=== PATIENT | female | born 1975 | race Caucasian/White ===

== ENCOUNTER 2020-05-09 12:34 | Emergency (ER) | payer MEDICAID ==
[~2020-05-09] VITALS: Ht 172.7 cm; Wt 100.0 kg
== END 2020-05-09 13:37 | disposition home or self-care (01) ==
LOC: ER 12:35
DX: J06.9 Acute upper respiratory infection, unspecified (principal); R51.9 Headache, unspecified; R06.02 Shortness of breath; R05 Cough; R11.0 Nausea; Z20.828 Contact with and (suspected) exposure to other viral communicable diseases
CPT/HCPCS: 36415; 87635; 99283

== ENCOUNTER 2020-09-22 20:47 | Inpatient (IN) | payer MEDICAID ==
[~2020-09-22] VITALS: Ht 172.7 cm; Wt 113.6 kg
[2020-09-22 21:28] LABS: BASOPHILS # (AUTO) 0.1 X10'3 (0-0.2); BASOPHILS % (AUTO) 0.9 % (0-1); EOSINOPHILS % (AUTO) 0.6 % (0-6); HEMATOCRIT 39.9 % (35.0-45.0); HEMOGLOBIN 13.1 g/dl (12.0-16.0); LYMPHOCYTES # (AUTO) 1.6 X10'3 (1.1-4.8); LYMPHOCYTES % (AUTO) 25.1 % (21-51); MEAN CORPUSCULAR HEMOGLOBIN 28.3 PG (27.0-31.0); MEAN CORPUSCULAR HGB CONC 32.8 g/dL (33.0-36.5); MEAN CORPUSCULAR VOLUME 86.3 FL (78-98); MEAN PLATELET VOLUME 9.2 FL (7.4-10.4); MONOCYTES # (AUTO) 0.4 X10'3 (0-0.9); MONOCYTES % (AUTO) 6.6 % (2-12); NEUTROPHILS # (AUTO) 4.3 X10'3 (1.8-7.7); NEUTROPHILS % (AUTO) 66.8 % (42-75); PLATELET COUNT 222 X10'3 (140-440); RED BLOOD COUNT 4.62 X10'6 (4.20-5.60); RED CELL DISTRIBUTION WIDTH 14.6 % (11.5-14.5); WHITE BLOOD COUNT 6.4 X10'3 (4.5-11.0)
[2020-09-22 21:39] LABS: ALANINE AMINOTRANSFERASE 206 U/L (12-78); ALBUMIN 3.3 G/DL (3.4-5.0); ALBUMIN/GLOBULIN RATIO 0.9 (1.1-1.5); ALKALINE PHOSPHATASE 136 IU/L (46-116); ANION GAP 7 (8-16); ASPARTATE AMINO TRANSFERASE 249 U/L (10-37); BILIRUBIN,TOTAL 1.7 MG/DL (0.1-1.0); BLOOD UREA NITROGEN 7 MG/DL (7-18); CALCIUM 8.8 MG/DL (8.5-10.1); CHLORIDE 104 MMOL/L (99-107); GLUCOSE 111 MG/DL (70-104); LIPASE 66 U/L (73-393); POTASSIUM 3.8 MMOL/L (3.5-5.1); SODIUM 141 MMOL/L (135-145); TOTAL CARBON DIOXIDE 29.9 MMOL/L (24-32); eGFR > 90 ML/MIN
[2020-09-22 21:44] LABS: CLARITY,URINE CLEAR (Clear); GLUCOSE, URINE NEGATIVE (Neg); KETONES,URINE NEGATIVE (Neg); LEUKOCYTE ESTERASE ,URINE TRACE (Neg); NITRITES, URINE NEGATIVE (Neg); OCCULT BLOOD,URINE NEGATIVE (Neg); PH,URINE 7.5 (4.8-8.0); PROTEIN,URINE NEGATIVE (Neg); UROBILINOGEN,URINE >=8.0 E.U/dL (0.2-1.0)
[2020-09-22 21:45] LABS: URINE HCG NEGATIVE (NEG)
[2020-09-22 22:12] LABS: COLOR,URINE DARK YELLOW (Yellow); UA COLLECTION TYPE NON-SPECIFIED
[2020-09-22 22:13] LABS: BACTERIA,URINE 3+ /HPF (Neg); MUCUS STRANDS FEW /LPF (Neg); RBC,URINE NONE SEEN /HPF (0-2); SQUAMOUS EPITHELIAL CELL,UR MODERATE /LPF (FEW); WBC,URINE 0-4 /HPF (0-4)
[2020-09-22] MEDS ORDERED: ondansetron/PF 4mg/2ml inj IV ONE (23:45)
[2020-09-22] MEDS ORDERED: ketorolac tromethamine 15mg/ml inj. IV ONE (23:45)
[2020-09-23] VITALS (20 sets, daily range): BP systolic 124–165; BP diastolic 62–104
[2020-09-23] MEDS ORDERED: acetaminophen 650mg rectal suppository RC PRN (01:05)
[2020-09-23] MEDS ORDERED: bisacodyl 10mg suppository rectal RC PRN (01:05)
[2020-09-23] MEDS ORDERED: diphenhydrAMINE 25mg capsule PO PRN (01:05)
[2020-09-23] MEDS ORDERED: diphenhydrAMINE 50 mg/ml inj IV PRN (01:05)
[2020-09-23] MEDS ORDERED: ondansetron/PF 4mg/2ml inj IV PRN (01:05)
[2020-09-23] MEDS ORDERED: acetaminophen 325mg tablet PO PRN ×2 (01:05)
[2020-09-23] MEDS ORDERED: morphine 2 MG/ML inj. syringe IV PRN ×2 (01:05)
[2020-09-23] MEDS ORDERED: HYDROmorphone inj. 0.5 MG/0.5 ML DISP.SYRIN IV PRN (01:05)
[2020-09-23] MEDS ORDERED: mag hydrox/Alum hydrox/simeth 30ml oral suspension PO PRN (01:05)
[2020-09-23] MEDS ORDERED: magnesium hydroxide 30ml (MOM) UD suspension PO PRN (01:05)
[2020-09-23] MEDS: dextrose 5%-1/2 normal saline 1,000 ML IV SCH ×3 (01:33→15:45)
[2020-09-23 01:42] LABS: URINE AMPHETAMINE SCREEN POSITIVE (Neg); URINE BARBITUATE SCREEN NEGATIVE (Neg); URINE BENZODIAZEPINES SCREEN NEGATIVE (Neg); URINE CANNABINOID SCREEN POSITIVE (Neg); URINE COCAINE SCREEN NEGATIVE (Neg); URINE METHADONE SCREEN NEGATIVE (Neg); URINE OPIATE SCREEN NEGATIVE (Neg); URINE PHENCYCLIDINE SCREEN NEGATIVE (Neg)
[2020-09-23 01:48] LABS: MAGNESIUM 2.2 MG/DL (1.5-2.4); PHOSPHORUS 3.2 MG/DL (2.3-4.5)
[2020-09-23 01:57] LABS: PARTIAL THROMBOPLASTIN TIME 27 SECONDS (22-32)
[2020-09-23 02:01] LABS: HIV ANTIBODY 1&2 RAPID NON-REACTIVE (Neg)
--- NOTE | 2020-09-23 02:21 | NUR ---
PATIENT ADMITTED IN PCU 3012 REPORT GIVEN TO AVERY VARGAS PATIENT LEFT ER ON WHEELCHAIR.
--- NOTE | 2020-09-23 06:05 | NUR ---
Problems reprioritized. Patient report given, questions answered & plan of care reviewed with SAM Rae.
--- NOTE | 2020-09-23 06:38 | NUR ---
Patient in room PCU 3012. I have received report from [facility] and had the opportunity to ask questions and assume patient care.
--- NOTE | 2020-09-23 06:40 | NUR ---
Patient in room PCU 3012. I have received report from SAM Merino and had the opportunity to ask questions and assume patient care.
[2020-09-23 07:44] LABS: ALANINE AMINOTRANSFERASE 307 U/L (12-78); ALBUMIN 2.9 G/DL (3.4-5.0); ALBUMIN/GLOBULIN RATIO 0.9 (1.1-1.5); ALKALINE PHOSPHATASE 144 IU/L (46-116); ANION GAP 8 (8-16); ASPARTATE AMINO TRANSFERASE 290 U/L (10-37); BILIRUBIN,TOTAL 2.3 MG/DL (0.1-1.0); BLOOD UREA NITROGEN 5 MG/DL (7-18); BUN/CREATININE RATIO 7.4 (6.6-38.0); CALCIUM 8.1 MG/DL (8.5-10.1); CHLORIDE 105 MMOL/L (99-107); CREATININE 0.68 MG/DL (0.40-0.90); GLUCOSE 102 MG/DL (70-104); POTASSIUM 3.3 MMOL/L (3.5-5.1); SODIUM 141 MMOL/L (135-145); TOTAL CARBON DIOXIDE 27.9 MMOL/L (24-32); TOTAL PROTEIN 6.3 G/DL (6.4-8.2); eGFR > 90 ML/MIN
[2020-09-23] MEDS: piperacillin/tazo 4.5gm/100ml 100 ML IV SCH ×2 (07:47→15:39)
[2020-09-23] MEDS ORDERED: pantoprazole 40 MG vial IV SCH (08:00)
[2020-09-23] MEDS ORDERED: CefTRIAXone/D5W-Rocephin 1gm 50 ML IV SCH (08:00)
[2020-09-23] MEDS: docusate sod 100mg capsule PO SCH ×2 (08:00→20:00)
[2020-09-23] MEDS ORDERED: NO HOME MEDS (10:14)
[2020-09-23] MEDS ORDERED: fentaNYL/PF 50MCG/1 ML 2ML syringe ONE (12:10)
[2020-09-23] MEDS ORDERED: MIDAZolam 1 MG/ML 5ML VIAL ONE (12:11)
[2020-09-23] MEDS ORDERED: LIDOcaine Viscous 15ml cup ONE (12:12)
[2020-09-23] MEDS ORDERED: glucagon, human recombinant 1mg kit ONE (12:12)
[2020-09-23] MEDS ORDERED: iohexol 300 MG/1 ML 50ml polymer ONE (12:12)
--- NOTE | 2020-09-23 15:56 | NUR ---
notified. PAGER ID: [phone] MESSAGE: Re: Karen Waddell. [phone]. Patient is back from the ERCP if you want to see patient . Starting her on a CL diet per GI. patient reports relief. Thanks. Kyra. [phone].
--- NOTE | 2020-09-23 18:00 | NUR ---
Patient in room PCU 3012. I have received report from Kyra VARGAS and had the opportunity to ask questions and assume patient care.
--- NOTE | 2020-09-23 18:30 | NUR ---
Patient in room PCU 3012. I have received report from SAM Rae and had the opportunity to ask questions and assume patient care.
--- NOTE | 2020-09-23 18:36 | NUR ---
Problems reprioritized. Patient report given, questions answered & plan of care reviewed with Marcus RN.
--- NOTE | 2020-09-23 18:52 | NUR ---
notified PAGER ID: [phone] MESSAGE: RE; Bairon Karen [id number] Tele her K- 3.3 would you like to start her on Potassium replacement? Thank you SAM Wu ext [phone]
[2020-09-23] MEDS ORDERED: potassium Cl 20 mEq SR tablet PO PRN ×2 (19:10)
[2020-09-23] MEDS ORDERED: potassium Cl 40MEQ/1/2NS 520ml 520 ML IV PRN (19:10)
[2020-09-23] MEDS ORDERED: K and/or MAG REPLACEMENT MC SCH (20:00)
--- NOTE | 2020-09-23 20:05 | NUR ---
IVF and Abx Compatibility Pharmacy was called to verify D5 .45%NS and Zosyn compatibility. Pharmacy mentioned that though the two have not been tested it should be okay due to being tested with D5W and NS separately. Also mentioned secondary PIV would be best but if not possible, to be cautious keep an eye on the IV site for any inflammation, redness, and irritation. Patient is refusing a secondary IV and is agitated at this time, will continue to monitor patient and PIV site.
[2020-09-23] MEDS ORDERED: temazepam 15mg capsule PO PRN (21:00)
--- NOTE | 2020-09-23 21:17 | NUR ---
Patient wanting to go home educated on antibiotic treatment for uti and possibility of developing an antibiotic resistant UTI. Patient stated, "I can deal with it at home." Educated on leaving AMA and risks patient stated she didn't care.
--- NOTE | 2020-09-23 21:30 | NUR ---
Orientee documentation: I have reviewed and agree with all interventions, medication administration, assessments performed and documented by Jazmin VARGAS.
--- NOTE | 2020-09-23 21:30 | NUR ---
Iv removed cannula intact. MD Trejo called informed about patient wanting to leave AMA. Patient consulted advised to stay educated of risks of leaving possible and antibiotiv resistant UTI. Patient verbalized understanding signed AMAM papers and left vitals stable on AMA.
[2020-09-24 11:15] LABS: HBSAG SCREEN Negative (Negative); HEP A AB, IGM Negative (Negative); HEP B CORE AB, TOT Negative (Negative); HEPATITIS C ANTIBODY <0.1 s/co ratio (0.0-0.9)
== END 2020-09-23 21:47 | disposition left against medical advice (07) ==
LOC: ER 20:47 → ED HOLD 09-23 01:05 → PCU 3S 09-23 02:50
PROVIDERS: ADMIT Family Medicine; ATTEND Internal Medicine
PROC: 0F798ZZ Dilation of Common Bile Duct, Via Natural or Artificial Opening Endoscopic (ICD-10-PCS; principal; 2020-09-23)
PROC: BF101ZZ Fluoroscopy of Bile Ducts using Low Osmolar Contrast (ICD-10-PCS; 2020-09-23)
DX: K80.62 Calculus of gallbladder and bile duct with acute cholecystitis without obstruction (principal); E88.81 Metabolic syndrome and other insulin resistance; E66.9 Obesity, unspecified; F10.10 Alcohol abuse, uncomplicated; F12.10 Cannabis abuse, uncomplicated; F15.10 Other stimulant abuse, uncomplicated; E87.6 Hypokalemia; E80.6 Other disorders of bilirubin metabolism; F17.200 Nicotine dependence, unspecified, uncomplicated; I10 Essential (primary) hypertension; N39.0 Urinary tract infection, site not specified; Z68.38 Body mass index [BMI] 38.0-38.9, adult; Z98.891 History of uterine scar from previous surgery
CPT/HCPCS: 36415; 43262; 43264; 74176; 80053; 80305; 81001; 81025; 83036; 83605; 83690; 83735; 84100; 84443; 85025; 85610; 85730; 86703; 86704; 86705; 86706; 86709; 86803; 87040; 87077; 87081; 87088; 87186; 87340; 99152; 99153; 99285; A4620; C1769; C9113; G0378; J1610; J1885; J2250; J2405; J2543; J3010; J7040; Q9967

== ENCOUNTER 2021-03-12 21:21 | Inpatient (IN) | payer MEDICAID ==
[~2021-03-12] VITALS: Ht 172.7 cm; Wt 104.5 kg
[~2021-03-12 21:21] MED LIST: NO HOME MEDS
[2021-03-12 21:51] LABS: URINE HCG NEGATIVE (NEG)
[2021-03-12 21:59] LABS: CLARITY,URINE CLEAR (Clear); COLOR,URINE YELLOW (Yellow); UA COLLECTION TYPE CLN CATCH MIDSTREAM
[2021-03-12 22:05] LABS: GLUCOSE, URINE NEGATIVE (Neg); KETONES,URINE NEGATIVE (Neg); LEUKOCYTE ESTERASE ,URINE NEGATIVE (Neg); NITRITES, URINE NEGATIVE (Neg); OCCULT BLOOD,URINE NEGATIVE (Neg); PROTEIN,URINE NEGATIVE (Neg); UROBILINOGEN,URINE 0.2 E.U/dL (0.2-1.0)
[2021-03-12 22:09] LABS: ALANINE AMINOTRANSFERASE 28 U/L (12-78); ALBUMIN 3.8 G/DL (3.4-5.0); ALBUMIN/GLOBULIN RATIO 0.9 (1.1-1.5); ALKALINE PHOSPHATASE 83 IU/L (46-116); ANION GAP 8 (8-16); ASPARTATE AMINO TRANSFERASE 17 U/L (10-37); BILIRUBIN,TOTAL 0.3 MG/DL (0.1-1.0); BLOOD UREA NITROGEN 8 MG/DL (7-18); BUN/CREATININE RATIO 9.3 (6.6-38.0); CALCIUM 9.1 MG/DL (8.5-10.1); CHLORIDE 102 MMOL/L (99-107); CREATININE 0.86 MG/DL (0.40-0.90); GLUCOSE 120 MG/DL (70-104); LIPASE 79 U/L (73-393); POTASSIUM 3.7 MMOL/L (3.5-5.1); SODIUM 140 MMOL/L (135-145); TOTAL CARBON DIOXIDE 30.4 MMOL/L (24-32); eGFR 72 ML/MIN
[2021-03-12 22:12] LABS: BASOPHILS # (AUTO) 0.1 X10'3 (0-0.2); BASOPHILS % (AUTO) 0.5 % (0-1); EOSINOPHILS # (AUTO) 0.1 X10'3 (0-0.9); EOSINOPHILS % (AUTO) 1.3 % (0-6); HEMATOCRIT 42.7 % (35.0-45.0); HEMOGLOBIN 14.5 g/dl (12.0-16.0); LYMPHOCYTES # (AUTO) 1.6 X10'3 (1.1-4.8); LYMPHOCYTES % (AUTO) 13.5 % (21-51); MEAN CORPUSCULAR HEMOGLOBIN 29.2 PG (27.0-31.0); MEAN CORPUSCULAR HGB CONC 34.1 g/dL (33.0-36.5); MEAN CORPUSCULAR VOLUME 85.6 FL (78-98); MEAN PLATELET VOLUME 9.9 FL (7.4-10.4); MONOCYTES # (AUTO) 0.6 X10'3 (0-0.9); MONOCYTES % (AUTO) 4.8 % (2-12); NEUTROPHILS # (AUTO) 9.2 X10'3 (1.8-7.7); NEUTROPHILS % (AUTO) 79.9 % (42-75); PLATELET COUNT 263 X10'3 (140-440); RED BLOOD COUNT 4.99 X10'6 (4.20-5.60); RED CELL DISTRIBUTION WIDTH 14.2 % (11.5-14.5); WHITE BLOOD COUNT 11.5 X10'3 (4.5-11.0)
[2021-03-12] MEDS ORDERED: ondansetron/PF 4mg/2ml inj IV ONE (23:25)
[2021-03-12] MEDS ORDERED: morphine 4 MG/ML inj SYRINge IV ONE (23:25)
[2021-03-12] MEDS ORDERED: iohexol 300mg/ml 100ml inj. ONE (23:25)
[2021-03-13] MEDS ORDERED: piperacillin/tazo 3.375gm/50ml 50 ML IV ONE (00:05)
[2021-03-13] MEDS ORDERED: normal saline 1000ml 1,000 ML IV ONE (00:05)
[2021-03-13] MEDS ORDERED: potassium Cl 20 mEq SR tablet PO PRN ×2 (00:55)
[2021-03-13] MEDS ORDERED: magnesium Cl slow-release 64mg tablet PO PRN (00:55)
[2021-03-13] MEDS: normal saline 1000ml 1,000 ML IV SCH ×3 (00:55→20:11)
[2021-03-13] MEDS ORDERED: ondansetron/PF 4mg/2ml inj IV PRN ×2 (00:55→13:20)
[2021-03-13] MEDS ORDERED: morphine 2 MG/ML inj. syringe IV PRN ×2 (00:55→13:20)
[2021-03-13] MEDS ORDERED: magnesium 2GM in 50ml NS 50 ML IV PRN (00:55)
[2021-03-13] MEDS ORDERED: magnesium 4gm in 100ml NS 100 ML IV PRN (00:55)
[2021-03-13] MEDS ORDERED: acetaminophen 325mg tablet PO PRN (00:55)
[2021-03-13] MEDS ORDERED: potassium Cl 40MEQ/1/2NS 520ml 520 ML IV PRN ×2 (00:55)
--- NOTE | 2021-03-13 02:25 | NUR ---
promotional table spacer PAGER ID: [phone] MESSAGE: Karen Bairon in ER #4 SBP consistently >190. Pt reports no hx of HTN. Orders?
[2021-03-13] MEDS ORDERED: hydrALAZINE 20mg/ml inj. IV PRN ×2 (02:40→13:20)
[2021-03-13] MEDS ORDERED: morphine 2 MG/ML inj. syringe IV ONE (04:00)
--- NOTE | 2021-03-13 06:30 | NUR ---
Patient in room KIANA 345. I have received report from Ania and had the opportunity to ask questions and assume patient care.
--- NOTE | 2021-03-13 07:05 | NUR ---
Problems reprioritized. Patient report given, questions answered & plan of care reviewed with Екатерина nelson.
[2021-03-13 08:00] VITALS: BP 126/76
[2021-03-13] MEDS: K and/or MAG REPLACEMENT MC SCH ×2 (08:00→20:00)
--- NOTE | 2021-03-13 08:00 | NUR ---
upon looking over pt belongings I found drug paraphernalia and pt stated they did meth 2 days ago. I will paged dr bañuelos to see about getting a tox screening done. I called security to come get the drug paraphernalia.
--- NOTE | 2021-03-13 08:00 | NUR ---
pt allowed permission to looked over belongings as part of the admission to the hospital. As we went over belongings pt pulled out paraphernalia, i made it clear to the pt that we would need to bag it up, label it, and give it to security, as its not allowed within the hospital. during this time pt also stated she had done meth 2 days ago, but she did not have any drugs with her just the paraphernalia within her purse.
[2021-03-13 08:52] LABS: URINE AMPHETAMINE SCREEN POSITIVE (Neg); URINE BARBITUATE SCREEN NEGATIVE (Neg); URINE BENZODIAZEPINES SCREEN NEGATIVE (Neg); URINE CANNABINOID SCREEN NEGATIVE (Neg); URINE COCAINE SCREEN NEGATIVE (Neg); URINE METHADONE SCREEN NEGATIVE (Neg); URINE OPIATE SCREEN POSITIVE (Neg); URINE PHENCYCLIDINE SCREEN NEGATIVE (Neg)
[2021-03-13 09:24] VITALS: BP 135/82
[2021-03-13] MEDS: piperacillin/tazo 4.5gm/100ml 100 ML IV SCH ×2 (09:38→16:36)
--- NOTE | 2021-03-13 09:38 | NUR ---
as clinical instructor i reviewed student documentation
[2021-03-13] MEDS: HYDROmorphone inj. 0.5 MG/0.5 ML DISP.SYRIN IV PRN ×2 (09:46→16:37)
[2021-03-13 11:00] VITALS: BP 148/84
[2021-03-13] MEDS ORDERED: fentaNYL/PF 50MCG/1 ML 2ML syringe IV PRN ×2 (13:20)
[2021-03-13] MEDS ORDERED: ringers solution, lacted 1,000 ML IV ONE (13:20)
[2021-03-13] MEDS ORDERED: morphine 4 MG/ML inj SYRINge IV PRN (13:20)
[2021-03-13] MEDS ORDERED: labetalol 20mg/4ml (5mg/ml) syringe IV PRN (13:20)
[2021-03-13] MEDS ORDERED: ringers solution, lacted 1,000 ML IV SCH (13:20)
--- NOTE | 2021-03-13 17:59 | NUR ---
Problems reprioritized. Patient report given, questions answered & plan of care reviewed with Ania VARGAS.
--- NOTE | 2021-03-13 18:38 | NUR ---
Problems reprioritized. Patient report given, questions answered & plan of care reviewed with Kinga nelson.
--- NOTE | 2021-03-13 18:48 | NUR ---
Patient in room KIANA 345B. I have received report from SAM Chapa and had the opportunity to ask questions and assume patient care.
[2021-03-13 21:19] VITALS: BP 106/60
[2021-03-14] VITALS (17 sets, daily range): BP systolic 120–156; BP diastolic 57–92
[2021-03-14] MEDS: piperacillin/tazo 4.5gm/100ml 100 ML IV SCH ×3 (00:21→17:22)
[2021-03-14] MEDS: HYDROmorphone inj. 0.5 MG/0.5 ML DISP.SYRIN IV PRN ×2 (00:22→09:04)
[2021-03-14] MEDS ORDERED: famotidine 20mg tablet PO ONE (06:00)
[2021-03-14 06:02] LABS: BASOPHILS # (AUTO) 0.1 X10'3 (0-0.2); BASOPHILS % (AUTO) 0.8 % (0-1); EOSINOPHILS # (AUTO) 0.4 X10'3 (0-0.9); EOSINOPHILS % (AUTO) 5.3 % (0-6); HEMATOCRIT 38.4 % (35.0-45.0); LYMPHOCYTES # (AUTO) 2.2 X10'3 (1.1-4.8); LYMPHOCYTES % (AUTO) 27.8 % (21-51); MEAN CORPUSCULAR HEMOGLOBIN 28.9 PG (27.0-31.0); MEAN CORPUSCULAR HGB CONC 33.7 g/dL (33.0-36.5); MEAN CORPUSCULAR VOLUME 85.7 FL (78-98); MEAN PLATELET VOLUME 10.2 FL (7.4-10.4); MONOCYTES # (AUTO) 0.6 X10'3 (0-0.9); MONOCYTES % (AUTO) 7.9 % (2-12); NEUTROPHILS # (AUTO) 4.6 X10'3 (1.8-7.7); NEUTROPHILS % (AUTO) 58.2 % (42-75); PLATELET COUNT 205 X10'3 (140-440); RED BLOOD COUNT 4.49 X10'6 (4.20-5.60); RED CELL DISTRIBUTION WIDTH 14.5 % (11.5-14.5); WHITE BLOOD COUNT 7.8 X10'3 (4.5-11.0)
[2021-03-14 06:08] LABS: ALBUMIN 2.7 G/DL (3.4-5.0); ANION GAP 9 (8-16); BLOOD UREA NITROGEN 8 MG/DL (7-18); BUN/CREATININE RATIO 10.4 (6.6-38.0); CHLORIDE 106 MMOL/L (99-107); CREATININE 0.77 MG/DL (0.40-0.90); GLUCOSE 83 MG/DL (70-104); MAGNESIUM 2.1 MG/DL (1.5-2.4); POTASSIUM 3.6 MMOL/L (3.5-5.1); SODIUM 140 MMOL/L (135-145); TOTAL CARBON DIOXIDE 25.1 MMOL/L (24-32); eGFR 82 ML/MIN
--- NOTE | 2021-03-14 06:39 | NUR ---
Student documentation: I have reviewed and agree with all interventions, assessments performed and documented by Sohail Student Nurse.
--- NOTE | 2021-03-14 06:39 | NUR ---
Problems reprioritized. Patient report given, questions answered & plan of care reviewed with SAM Lubin.
[2021-03-14] MEDS: K and/or MAG REPLACEMENT MC SCH ×2 (08:00→20:00)
[2021-03-14] MEDS: normal saline 1000ml 1,000 ML IV SCH ×3 (09:04→22:21)
[2021-03-14] MEDS ORDERED: INDOCYANINE GREEN 25 MG/10 ML VIAL IV ONE (13:00)
--- NOTE | 2021-03-14 13:43 | NUR ---
Met with patient in regards to inpatient rehab. Patient is ready for treatment. I gave patient Beacons phone number with her Partnership ID to get the process started. I will follow up with patient while she is here to help her with whatever I can.
[2021-03-14] MEDS ORDERED: glucagon, human recombinant 1mg kit SUBCUT PRN (13:45)
[2021-03-14] MEDS ORDERED: dextrose 50%-water 50ml dispensing syringe IV PRN ×2 (13:45)
[2021-03-14] MEDS ORDERED: dextrose ORAL solution 15 GM/59 ML bottle PO PRN ×2 (13:45)
[2021-03-14] MEDS ORDERED: dextrose 50%-water 50ml dispensing syringe IV ONE (13:46)
[2021-03-14] MEDS ORDERED: LIDOcaine 1% 30ml preserv. free vial ONE (13:50)
[2021-03-14] MEDS ORDERED: BUPIVAcaine/PF 2.5 mg/ml (0.25%) 30ml vial ONE (13:50)
--- NOTE | 2021-03-14 13:58 | NUR ---
Patient report called to Ramon in Recovery. He is aware patients Blood glucose was 64 and I gave the patient 25ml's of glucose they will have to recheck patients Blood glucose. Patient has 2 IV's and the 22G was throbbing post glucose administration even with 10cc NS flush. Ramon aware patient has a 20G to her Right wrist that is working well.
[2021-03-14] MEDS ORDERED: ondansetron/PF 4mg/2ml inj IV PRN (14:20)
[2021-03-14] MEDS ORDERED: proCHLORperazine 10 MG/2 ml inj IV PRN (14:20)
[2021-03-14] MEDS ORDERED: labetalol 20mg/4ml (5mg/ml) syringe IV PRN (14:20)
[2021-03-14] MEDS ORDERED: hydrALAZINE 20mg/ml inj. IV PRN (14:20)
[2021-03-14] MEDS ORDERED: morphine 2 MG/ML inj. syringe IV PRN (14:20)
[2021-03-14] MEDS ORDERED: ringers solution, lacted 1,000 ML IV SCH (14:20)
[2021-03-14] MEDS ORDERED: morphine 4 MG/ML inj SYRINge IV PRN (14:20)
[2021-03-14] MEDS ORDERED: acetaminophen 1,000mg/100ml IV 100 ML IV PRN (14:20)
[2021-03-14] MEDS ORDERED: meperidine/PF 25mg/ml syringe IV PRN ×3 (14:20)
[2021-03-14] MEDS ORDERED: midazolam 1 mg/ML 2ml injection ONE (14:24)
[2021-03-14] MEDS ORDERED: LIDOcaine 2% (20mg/ml) 5ml vial ONE (14:38)
[2021-03-14] MEDS ORDERED: ceFAZolin 1000mg inj ONE ×2 (14:38)
[2021-03-14] MEDS ORDERED: rocuronium 10mg/ml inj IV ONE (14:38)
[2021-03-14] MEDS ORDERED: fentaNYL /PF 50mcg/ml 5ml ampule ONE (14:38)
[2021-03-14] MEDS ORDERED: propofol inj 20 ML IV ONE (14:38)
[2021-03-14] MEDS ORDERED: ondansetron/PF 4mg/2ml inj ONE (14:40)
[2021-03-14] MEDS ORDERED: dexamethasone sod phosphate 4mg/ml inj. ONE (14:40)
[2021-03-14] MEDS ORDERED: glycopyrrolate 0.2mg/ml inj ONE (15:50)
[2021-03-14] MEDS ORDERED: neostigmine methylsulfate 1 MG/ML 10ml vial ONE (15:50)
--- NOTE | 2021-03-14 16:10 | NUR ---
ADMITTED TO PACU FROM OR ACCOMPANIED BY ANESTHESIA. INTIAL PHYSICAL ASSESSMENT DONE AND RECORDED. REPORT RECEIVED FROM ANESTHESIA.
[2021-03-14] MEDS ORDERED: HYDROcodone/acetaminophen 5mg/325mg tablet PO PRN (16:35)
--- NOTE | 2021-03-14 17:00 | NUR ---
PACU DISCHARGE CRITERIA MET, REPORT GIVEN TO FLOOR. DENIES PAIN OR DISCOMFORT. PT IS STABLE AND ADEQUATELY RECOVERED FROM ANESTHESIA. PT HAS STABLE AIRWAY PATENCY, RESPIRATORY FUNCTION TO INCLUDE RESPIRATORY RATE AND O2 SAT. HEART RATE, BLOOD PRESSURE STABLE AND HYDRATION ADEQUATE. MENTAL STATUS IS APPROPRIATE. PAIN AND NAUSEA CONTROLLED. REFER TO PACU SPREADSHEET FOR VITAL SIGNS.
--- NOTE | 2021-03-14 17:05 | NUR ---
PT WISHES TO GO HOME TONIGHT, DR. FALCON ADVISED. NO DISCHARGE TONIGHT DUE TO PT'S SURGICAL STATUS, CHRISTI VARGAS CALLED AND ADVISED.
[2021-03-14] MEDS: HYDROcodone/acetaminophen 10/325mg tab PO PRN ×2 (17:21→18:54)
--- NOTE | 2021-03-14 18:10 | NUR ---
Patient in room KIANA 345B. I have received report from SAM Lubin and had the opportunity to ask questions and assume patient care.
--- NOTE | 2021-03-14 18:21 | NUR ---
Problems reprioritized. Patient report given, questions answered & plan of care reviewed with Karen VARGAS.
[2021-03-14] MEDS: lactobacillus rhamnosus 10,000 MMU CELLS/CAPSULE PO SCH (20:04)
[2021-03-15] VITALS: BP 129/72
[2021-03-15] MEDS: piperacillin/tazo 4.5gm/100ml 100 ML IV SCH ×2 (00:54→07:32)
[2021-03-15 05:44] LABS: BASOPHILS % (AUTO) 0.2 % (0-1); EOSINOPHILS % (AUTO) 0 % (0-6); HEMATOCRIT 37.4 % (35.0-45.0); HEMOGLOBIN 12.6 g/dl (12.0-16.0); LYMPHOCYTES # (AUTO) 0.7 X10'3 (1.1-4.8); LYMPHOCYTES % (AUTO) 6.4 % (21-51); MEAN CORPUSCULAR HEMOGLOBIN 28.9 PG (27.0-31.0); MEAN CORPUSCULAR HGB CONC 33.7 g/dL (33.0-36.5); MEAN CORPUSCULAR VOLUME 85.8 FL (78-98); MEAN PLATELET VOLUME 9.6 FL (7.4-10.4); MONOCYTES # (AUTO) 0.7 X10'3 (0-0.9); MONOCYTES % (AUTO) 6.1 % (2-12); NEUTROPHILS # (AUTO) 10.2 X10'3 (1.8-7.7); NEUTROPHILS % (AUTO) 87.3 % (42-75); PLATELET COUNT 220 X10'3 (140-440); RED BLOOD COUNT 4.36 X10'6 (4.20-5.60); RED CELL DISTRIBUTION WIDTH 14.6 % (11.5-14.5); WHITE BLOOD COUNT 11.7 X10'3 (4.5-11.0)
--- NOTE | 2021-03-15 06:06 | NUR ---
Problems reprioritized. Patient report given, questions answered & plan of care reviewed with SAM Madrid.
[2021-03-15 06:14] LABS: ALBUMIN 2.6 G/DL (3.4-5.0); ANION GAP 8 (8-16); BLOOD UREA NITROGEN 6 MG/DL (7-18); CALCIUM 8.4 MG/DL (8.5-10.1); CHLORIDE 106 MMOL/L (99-107); CREATININE 0.86 MG/DL (0.40-0.90); GLUCOSE 118 MG/DL (70-104); POTASSIUM 4.1 MMOL/L (3.5-5.1); SODIUM 141 MMOL/L (135-145); TOTAL CARBON DIOXIDE 26.7 MMOL/L (24-32); eGFR 72 ML/MIN
[2021-03-15 07:00] VITALS: BP 136/80
[2021-03-15] MEDS: lactobacillus rhamnosus 10,000 MMU CELLS/CAPSULE PO SCH (07:32)
[2021-03-15] MEDS: K and/or MAG REPLACEMENT MC SCH (08:00)
--- NOTE | 2021-03-15 09:34 | NUR ---
IV was removed at 0930 on 03/15/21. Addendum: 03/15/21 at 0936 by Naty Kaplan - Student HAVEN Amended: Links added.
[2021-03-15] MEDS ORDERED: AMOX-422 PO (09:45)
[2021-03-15] MEDS ORDERED: HYDR-3964 PO (09:45)
[2021-03-15 10:07] LABS: ALANINE AMINOTRANSFERASE 36 U/L (12-78); ALBUMIN/GLOBULIN RATIO 0.7 (1.1-1.5); ALKALINE PHOSPHATASE 63 IU/L (46-116); ASPARTATE AMINO TRANSFERASE 33 U/L (10-37); BILIRUBIN,TOTAL 0.3 MG/DL (0.1-1.0); TOTAL PROTEIN 6.6 G/DL (6.4-8.2)
--- NOTE | 2021-03-15 10:26 | NUR ---
Pt discharged home. belongings sent with pt. iv's removed tips intact. Educated pt on follow up with dr. oscar. pt discharged in stable condition to home in private vehicle
== END 2021-03-15 10:05 | disposition home or self-care (01) | DRG 263 ==
LOC: ER 21:22 → UNDOADMIN 03-13 00:58 → ED HOLD 03-13 00:58 → SUR 3N 03-13 07:28 → ED HOLD 03-13 07:28
PROVIDERS: ADMIT Internal Medicine; ATTEND Family Medicine
PROC: BW211ZZ Computerized Tomography (CT Scan) of Abdomen and Pelvis using Low Osmolar Contrast (ICD-10-PCS; 2021-03-12)
PROC: 8E0W4CZ Robotic Assisted Procedure of Trunk Region, Percutaneous Endoscopic Approach (ICD-10-PCS; 2021-03-14)
PROC: BF532Z0 Other Imaging of Gallbladder and Bile Ducts using Fluorescing Agent, Intraoperative (ICD-10-PCS; 2021-03-14)
PROC: 0FT44ZZ Resection of Gallbladder, Percutaneous Endoscopic Approach (ICD-10-PCS; principal; 2021-03-14 14:18)
DX: K80.01 Calculus of gallbladder with acute cholecystitis with obstruction (principal); E66.9 Obesity, unspecified; F15.90 Other stimulant use, unspecified, uncomplicated; Z20.822 Contact with and (suspected) exposure to COVID-19; F17.210 Nicotine dependence, cigarettes, uncomplicated; Z98.891 History of uterine scar from previous surgery; Z68.35 Body mass index [BMI] 35.0-35.9, adult; Z71.51 Drug abuse counseling and surveillance of drug abuser; Z71.6 Tobacco abuse counseling
CPT/HCPCS: 36415; 74177; 80048; 80053; 80305; 81003; 81025; 82948; 83690; 83735; 85025; 86885; 86900; 86901; 87081; 87635; 99285; A4215; A4618; A7000; G0378; J0360; J0690; J1100; J1170; J2001; J2250; J2270; J2405; J2543; J2704; J2710; J3010; J3490; J7030; J7120; Q9967

== ENCOUNTER 2024-08-03 07:19 | Emergency (ER) | payer MEDICAID ==
[~2024-08-03] VITALS: Ht 172.7 cm; Wt 126.7 kg
[~2024-08-03 07:19] MED LIST changes: +HYDR-3964 PO
[2024-08-03 07:25] VITALS: BP 149/93; PULSE 94; RESP 18; TEMP 97.8; O2SAT 96
== END 2024-08-03 08:35 | disposition home or self-care (01) ==
LOC: ER 07:20
DX: S83.8X1A Sprain of other specified parts of right knee, initial encounter (principal); Z98.890 Other specified postprocedural states; X58.XXXA Exposure to other specified factors, initial encounter; Y93.89 Activity, other specified; Y92.89 Other specified places as the place of occurrence of the external cause; Y99.8 Other external cause status
CPT/HCPCS: 29530; 73564; 99283

== ENCOUNTER 2024-12-10 20:03 | Emergency (ER) | payer MEDICAID ==
[~2024-12-10] VITALS: Ht 175.3 cm; Wt 122.5 kg
[2024-12-10 20:08] VITALS: TEMP 98
--- NOTE | 2024-12-10 20:22 | ELECTROCARDIOGRAPH REPORT ---
[facility] Test Date: 2024-12-10 Test Time: 20:20:15 Pat Name: SNOW DEY Department: [facility]- Patient ID: [facility]-[id number] Room: Gender: F Supervisor Post Wave: HERNESTO VARGAS : 1975 Requested By: VALENCIA KATHLEEN Order Number: [id number] Reading MD: Measurements Intervals [place] Rate: 70 P: 49 IL: 169 QRS: -8 QRSD: 131 T: 50 QT: 394 QTc: 426 Interpretive Statements Sinus rhythm Probable left ventricular hypertrophy Baseline wander in lead(s) V4 Please click the below link to view image of tracing.
[2024-12-10 20:39] LABS: MEAN PLATELET VOLUME 10.0 FL (7.4-10.4); RED CELL DISTRIBUTION WIDTH 12.9 % (11.5-14.5)
--- NOTE | 2024-12-10 20:48 | RADIOLOGY REPORT ---
CHEST RADIOGRAPH Indication: CP Technique: 1 view Comparison: None FINDINGS: Lines and Tubes: None Lungs: No focal consolidation. Pleura: No effusion or pneumothorax. Right costophrenic angle opacity appears to represent rib summat ion. Cardiomediastinal contours: Unremarkable. Other: No acute osseous abnormality. IMPRESSION: 1. No acute cardiopulmonary abnormality.
[2024-12-10 20:53] LABS: CREATININE 0.92 MG/DL (0.40-0.90); PRO BRAIN NATRIURETIC PEPTIDE 90 PG/ML (0-125); TOTAL CARBON DIOXIDE 25.6 MMOL/L (24-32); eCRCL 80 ML/MIN; eGFR 66 ML/MIN
[2024-12-11 03:20] LABS: URINE HCG NEGATIVE (NEG)
--- NOTE | 2024-12-11 03:23 | Physician Documentation ---
History of Present Illness ~ Chief Complaint: Dizziness Stated Complaint: DIZZINESS Time Seen by MD: 03:14 Primary Medical Doctor: SALLY/ Sabrina TONG 48-year-old female presenting with what she describes as unusual sensations in her eyes. She states that she was sitting at home today when she started seeing some floaters and felt like her vision was come in and going. She describes it as strange form of dizziness although the room was not spinning and she did not necessarily feel lightheaded. At that time she felt like her chest was slightly tight but this quickly went away. Her symptoms resolve but she got worried and wants to be checked out. She denies any urinary symptoms, shortness of breath or any other associated symptoms. Medication Reconciliation Allergies: Coded Allergies: No Known Allergies (Unverified , 12/10/24) Scheduled Nitrofurantoin Macrocrystal (Nitrofurantoin), 1 CAP PO Q12H Scheduled PRN Hydrocodone Bit/Acetaminophen (Hydrocodon-Acetaminophen 5-325), 1 TAB PO Q4H PRN for MODERATE PAIN 4-6 Miscellaneous Medications Home Med List (No Home Medications), (Reported) Past Medical History Past Medical History: No Pertinent History Past Surgical History: Patient History: Patient reports no known family medical history. Drug Use: none Lives In: Home Review of Systems All Other Systems at this time: Reviewed and Negative Physical Exam Vital Signs: Temperature: 98.0, Heart Rate: 74, Respiratory Rate: 16, BP: 133/83, Pulse Oximetry: 94, Weight: 122.500 Oxygen Flow Rate: 0 Physical Exam I have reviewed the triage vitals. CONST: Well developed and well nourished. In no acute distress HENT: Head Atraumatic EYES: Pupils are equal, round and reactive to light. Normal conjunctiva NECK: Normal range of motion. Supple. CARDIO: Normal rate and regular rhythm. No murmurs, rubs, or gallops. S1, S2. PULM/CHEST: No respiratory distress. Lungs clear to auscultation. No wheeze ABD: Soft and nontender. Nondistended. Bowel sounds normal. No guarding. : Exam deferred MSK: No edema. No deformity. NEURO: Alert and oriented to person, place and time. Moving all extremities SKIN: Warm and dry. PSYCH: Normal mood and affect. Good eye contact. Progress Results/Orders Results/Orders Orders - VALENCIA KATHLEEN MD Chest,Single View (12/10/24 20:36) Monitor (12/10/24 20:13) Saline Lock (12/10/24 20:13) Oxygen (12/10/24 20:13) Straight Cath For Urine Sample (12/11/24 03:05) Completed Orders - VALENCIA KATHLEEN MD Chest,Single View (12/10/24 20:36) Cbc/Diff (12/10/24 20:13) BMP (12/10/24 20:13) PBNP (12/10/24 20:13) Electrocardiogram (12/10/24 20:13) Hs Troponin I W Calculations (12/10/24 20:13) Hs Troponin I W Calculations (12/10/24 22:13) Hs Troponin I W Calculations (12/10/24 23:13) Hcg, Ur Ql (12/11/24 03:05) Ua W/Microscopic, Cult If Ind (12/11/24 02:00) Cult Urine + [place] [address] (12/11/24 04:27) Laboratory Tests Test 12/10/24 20:21 12/10/24 22:20 12/10/24 23:24 12/11/24 02:00 White Blood Count 6.1 Red Blood Count 4.45 Hemoglobin 13.0 Hematocrit 38.3 Mean Corpuscular Volume 85.9 Mean Corpuscular Hemoglobin 29.2 Mean Corpuscular Hemoglobin Concent 34.0 Red Cell Distribution Width 12.9 Platelet Count 215 Mean Platelet Volume 10.0 Neutrophils (%) (Auto) 42.6 Lymphocytes (%) (Auto) 43.0 Monocytes (%) (Auto) 8.5 Eosinophils (%) (Auto) 3.9 Basophils (%) (Auto) 2.0 H Neutrophils # (Auto) 2.6 Lymphocytes # (Auto) 2.6 Monocytes # (Auto) 0.5 Eosinophils # (Auto) 0.2 Basophils # (Auto) 0.1 CBC Comment Sodium Level 140 Potassium Level 3.6 Chloride Level 106 Carbon Dioxide Level 25.6 Anion Gap 8 Blood Urea Nitrogen 11 Creatinine 0.92 H Estimated GFR/1.73 m2 66 BUN/Creatinine Ratio 12.0 Glucose Level 85 Calcium Level 8.7 Troponin I High Sensitivity 7 7 5 Pro-B-Type Natriuretic Peptide 90 Albumin 3.6 Chemistry Comments Troponin I High Sens Percent Delta 0 28 Troponin I Hi Sens Absolute Change 0 -2 Urine Specimen Description Voided Urine Color Yellow Urine Clarity Slightly cloudy Urine pH 5.5 Urine Specific [place] >=1.030 Urine Protein Trace Urine Glucose (UA) Negative Urine Ketones Trace H Urine Occult Blood Small Urine Nitrite Negative Urine Bilirubin Negative Urine Urobilinogen 0.2 Urine Leukocyte Esterase Trace H Urine RBC 0-2 Urine WBC 5-10 H Urine Squamous Epithelial Cells Moderate Urine Calcium Oxalate Crystals 2+ Urine Bacteria 2+ Urine Mucus Moderate Urine Culture Indicated Indicated Volume Urine Centrifuged 10 ml Urine HCG, Qualitative Negative Urine Comment Microbiology Date/Time Source Procedure Growth Status 12/11/24 04:27 Urine Voided Urine Culture - Final MIXED KYRA ISOLATED.... Complete Medical Decision Making Additional Information 48-year-old female presenting with a urinary tract infection. UA is suggestive of this. Patient will be discharged with nitrofurantoin for seven days. Advised to take them as prescribed and follow up with PCP. Return to ED with any worsening symptoms. Departure Disposition: 01 HOME / SELF CARE / HOMELESS Impression: Primary Impression: Urinary tract infection Condition: Stable Discharge Instructions: Urinary Tract Infection, Adult Additional Instructions: Please take your medication as prescribed. Please ensure that you are drinking plenty of fluids. Monitor for improvement and resolution. Return to the ED with any acutely worsening symptoms. Referrals: NO PRIMARY CARE PROVIDER (PCP) Prescriptions Nitrofurantoin Macrocrystal (Nitrofurantoin) 100 Mg Capsule 1 CAP PO Q12H for 7 Days, #14 CAP 0 Refills Prov: VALENCIA KATHLEEN MD 12/11/24 Signature Scribe Signature: 1 Attestation: 1 VALENCIA KATHLEEN MD Dec 11, 2024 03:23
[2024-12-11 03:26] LABS: LEUKOCYTE ESTERASE ,URINE TRACE (Neg); NITRITES, URINE NEGATIVE (Neg); OCCULT BLOOD,URINE SMALL (Neg)
[2024-12-11 04:04] LABS: UA COLLECTION TYPE VOIDED
[2024-12-11 04:22] LABS: SQUAMOUS EPITHELIAL CELL,UR MODERATE /LPF (FEW)
[2024-12-11 04:25] LABS: MUCUS STRANDS MODERATE /LPF (Neg)
[2024-12-11 04:26] LABS: CAL OXALATE CRYSTALS 2+ /HPF (NEGATIVE)
[2024-12-11 04:52] VITALS: BP 127/62; PULSE 59; RESP 16; O2SAT 98
[2024-12-11] MEDS ORDERED: NITR100C PO (04:56)
== END 2024-12-11 05:21 | disposition home or self-care (01) ==
LOC: ER 20:04
DX: N39.0 Urinary tract infection, site not specified (principal)
CPT/HCPCS: 36415; 71045; 80048; 81001; 81025; 83880; 84484; 85025; 87088; 93005; 99285